=== PATIENT | male | born 1995 | race Caucasian/White ===

== ENCOUNTER 2019-04-09 11:47 | Emergency (ER) | payer MEDICAID ==
[~2019-04-09] VITALS: Ht 175.3 cm; Wt 81.8 kg
[2019-04-09 12:02] VITALS: BP 133/89
--- NOTE | 2019-04-09 13:00 | NUR ---
RIGHT ANKLE PAIN/SWELLING S/P PLAYING BASKETBALL YESTERDAY. PT STS "I LANDED WRONG." HX: DENIES RX: DENIES
[2019-04-09 13:40] VITALS: BP 120/88
--- NOTE | 2019-04-09 13:40 | NUR ---
Patient discharged with v/s stable. Written and verbal after care instructions given and explained. Patient alert, oriented and verbalized understanding of instructions. Ambulatory with crutches. All questions addressed prior to discharge. ID band removed. Patient advised to follow up with PMD. Rx of Naprosyn given. Patient educated on indication of medication including possible reaction and side effects. Opportunity to ask questions provided and answered.
[2019-04-09] MEDS: IBUPROFEN 400 MG TAB PO ONE (13:43)
== END 2019-04-09 13:40 | disposition home or self-care (01) ==
LOC: MED 11:47
DX: S93.401A Sprain of unspecified ligament of right ankle, initial encounter (principal); X58.XXXA Exposure to other specified factors, initial encounter; Y93.67 Activity, basketball; Y92.89 Other specified places as the place of occurrence of the external cause; Y99.8 Other external cause status
CPT/HCPCS: 73610; 99283; Q0092

== ENCOUNTER 2019-04-23 13:16 | Emergency (ER) | payer MEDICAID ==
[~2019-04-23] VITALS: Ht 175.3 cm; Wt 81.6 kg
[2019-04-23 13:37] VITALS: BP 121/75
[2019-04-23 14:58] LABS: APPEARANCE,URINE CLEAR (CLEAR); BILIRUBIN,URINE NEGATIVE (NEGATIVE); BLOOD, URINE NEGATIVE (NEGATIVE); COLOR,URINE AMBER (YELLOW); LEUKOCYTE ESTERASE ,URINE NEGATIVE (NEGATIVE); NITRITE, URINE NEGATIVE (NEGATIVE); UGLUCOSE NEGATIVE (NEGATIVE)
[2019-04-23 16:00] VITALS: BP 119/80
[2019-04-25 06:07] LABS: CHLAMYDIA TRACHOMATIS AMP DNA Negative (Negative)
== END 2019-04-23 16:26 | disposition home or self-care (01) ==
LOC: MED 13:16
DX: N50.811 Right testicular pain (principal); N43.40 Spermatocele of epididymis, unspecified
CPT/HCPCS: 36415; 76870; 81003; 87491; 99284; Q0092

== ENCOUNTER 2019-11-10 20:48 | Emergency (ER) | payer SELFPAY ==
[~2019-11-10] VITALS: Ht 175.3 cm; Wt 81.6 kg
[2019-11-10 21:02] VITALS: BP 141/82
--- NOTE | 2019-11-10 21:07 | NUR ---
PT AMBULATED TO ER BED 5
[2019-11-10] MEDS ORDERED: IBUPROFEN 600 MG TAB PO ONE (21:10)
[2019-11-10] MEDS ORDERED: ACETAMINOPHEN EXTRA STRENGTH 500 MG TAB PO ONE (21:10)
--- NOTE | 2019-11-10 21:15 | NUR ---
24 YO MALE CO POSSIBLE ALLERGIC REACTION SINCE TODAY. PT STATES THAT HE TOOK ONE OF HIS MOMS ATB AND HAS NOT FELT WELL SINCE. PT STATES THAT HE HAS A BARRETO 8/10 PAIN. PT ALSO STATES THAT HE FEELS LIKE HIS TOUNGE IS FEELING SWOLLEN AND HE HAS A SORE THROAT. NO PROBLEM SWOLLING AND NO DROOLING OBSERVED.
--- NOTE | 2019-11-10 21:21 | NUR ---
FLU SWAB COLLECTED AND SENT TO LAB
--- NOTE | 2019-11-10 21:29 | NUR ---
DR. CRAVEN BEDSIDE EVALUATING PT
[2019-11-10] MEDS ORDERED: predniSONE 20 MG TAB PO ONE (21:35)
[2019-11-10] MEDS ORDERED: CLINDAMYCIN 150 MG CAP PO ONE (22:15)
[2019-11-10 22:19] VITALS: BP 141/82
--- NOTE | 2019-11-10 22:19 | NUR ---
Patient discharged with v/s stable. Written and verbal after care instructions given and explained. Patient alert, oriented and verbalized understanding of instructions. Ambulatory with steady gait. All questions addressed prior to discharge. ID band removed. Patient advised to follow up with PMD. Rx of CLINDAMYCIN given. Patient educated on indication of medication including possible reaction and side effects. Opportunity to ask questions provided and answered.
== END 2019-11-10 22:19 | disposition home or self-care (01) ==
LOC: MED 20:48
DX: J02.9 Acute pharyngitis, unspecified (principal); R50.9 Fever, unspecified; R11.10 Vomiting, unspecified; R61 Generalized hyperhidrosis
CPT/HCPCS: 87804; 99284; J7512; Q0163

== ENCOUNTER 2021-03-09 15:33 | Emergency (ER) | payer SELFPAY ==
[~2021-03-09] VITALS: Ht 175.3 cm; Wt 88.9 kg
[2021-03-09 15:33] VITALS: BP 138/82
[2021-03-09] MEDS ORDERED: KETOROLAC 60 MG/2 ML VIAL IM ONE (15:55)
--- NOTE | 2021-03-09 16:04 | NUR ---
25/M presents to ED with c/o left shoulder pain. Patient states he was playing basketball 4 hours ago when another player pushed back at his arm at a fast pace. Patient states "I think its dislocated" no obvious deformity noted. Patient states a sharp 10/10 pain that worsens with movement or touch of site, pain is non radiating from shoulder, patient able to ambulate without assistance, denies taking anything for pain prior to arrival to ED.
[2021-03-09] MEDS ORDERED: KETO10TA2 PO (16:36)
[2021-03-09] MEDS ORDERED: CYCL-711 PO (16:36)
--- NOTE | 2021-03-09 17:11 | NUR ---
PT PLACED IN LEFT SHOULDER SLING
[2021-03-09 17:40] VITALS: BP 138/82
--- NOTE | 2021-03-09 17:41 | NUR ---
Patient discharged with v/s stable. Written and verbal after care instructions MEDICATIONS AND SHOULDER PAIN given and explained. Patient alert, oriented and verbalized understanding of instructions. Ambulatory with steady gait. All questions addressed prior to discharge. ID band removed. Patient advised to follow up with PMD. Rx of CYCLOBENZAPRINE HCL AND KETOROLAC TROMETHAMINE given. Patient educated on indication of medication including possible reaction and side effects. Opportunity to ask questions provided and answered.
== END 2021-03-09 17:41 | disposition home or self-care (01) ==
LOC: MED 15:33
DX: M25.512 Pain in left shoulder (principal); Z79.899 Other long term (current) drug therapy
CPT/HCPCS: 73020; 73060; 96372; 99284; J1885